=== PATIENT | male | born 1975 | race Caucasian/White ===

== ENCOUNTER 2023-04-01 08:23 | Outpatient (CLI) | payer MEDICARE, SELFPAY ==
--- NOTE | 2023-04-01 08:23 | CT_ITS ---
APPROVED REPORT Site Inspector: CLINICAL INDICATION Chest Pain TECHNIQUE Image Acquisition: A 128 slice MDCT scanner (Sisteera View) was used for data acquisition. A noncontrast coronary calcium scan was performed. A CT attenuation threshold of 130 Hounsfield units (HU) was used for the detection of calcium in contiguous voxels of 1 sq mm in area to be counted as individual lesions. Bolus tracking in the ascending aorta with a threshold of 180 HU was performed. Immediately afterwards, ECG synchronized cardiac CT was then performed from the cardiac base to apex using retrospective gating with ECG tube current modulation. A total of 85 mL of Isovue 370 mg/mL contrast medium was administered at 5 mL/sec followed by a saline flush using a biphasic injection protocol. A tube voltage of 120 KVp was used. The patient received the following medications prior to the cardiac CT. 25 mg of oral metoprolol 15 mg of oral ivabradine 0.8 mg of sublingual nitroglycerin The average heart rate at the time of acquisition was 55 bpm and regular. Image Reconstruction Transaxial images were reconstructed at 0.67 mm slide thickness. Data was reviewed interactively on an advanced workstation capable of 2 and 3-dimensional displays in all conventional reconstruction formats, including multiplanar reformations, maximum intensity projections, curved multiplanar reformations, and volume rendered reconstructions. When applicable, selected routine images describing the relevant coronary anatomy and pathology were saved and sent to PACS. Complications None Technical Quality Overall image quality was good. Coronary artery opacification was adequate. Total DLP (Dose-Length Product) is 1553.6 mGy-cm. The reported value represents the total of one or more individual components during the CT acquisition of this date and at this time, and as such, the same value may appear in more than one CT report depending on the interpreting/reporting physicians. COMPARISON None FINDINGS CT Coronary Calcium Scoring LMA (Left Main Artery) = 0 LAD (Left Anterior Descending) = 0 LCX (Left Coronary Circumflex) = 0 RCA (Right Coronary Artery) = 0 Total Calcium Score = 0 using the AJ-130 method. The interpretation of the calcium heart score is based on the following continuum*: 0 = no calcified plaque detected (risk of coronary artery disease is very low ??? less than 5%) 1-10 = calcium detected in extremely minimal levels (risk of coronary diseases is still low ??? less than 10%) 11-100 = mild levels of plaque detected with certainty (mild or minimal narrowing of heart arteries is likely) 101-400 = definite,at least moderate levels of plaque detected (relatively high risk of a heart attack within 3-5 years) >401-999 = extensive levels of plaque detected (high risk of heart attack, high levels of vascular disease are present, high likelihood of at least one significant coronary narrowing) *The calcium heart score quantifies the burden of coronary calcification/plaque in the coronary arteries. The calcium heart score is not able to evaluate the presence or burden of non-calcified (i.e. soft) plaque. There is no identifiable calcification in the aortic valve, mitral annulus or mitral valve, pericardium, or myocardium. Coronary CT Angiography The coronary arterial system is right dominant. Quantitative Stenosis Grading: Left Main (LM): The left main originates normally from the left sinus of Valsalva. The LM trifurcates into the left anterior descending artery and left circumflex artery. The LM is patent with no evidence of atherosclerosis. Left Anterior Descending (LAD) and Diagonal Branches: The LAD gives off 2 diagonal branches. The LAD and its branches are patent with no evidence of atherosclerosis. There is no evidence of LAD bridge. Ramus-intermedius (RI): The RI is patent. Left Circumflex (LCX) and Obtuse Marginals (OM): The LCX gives off 2 Obtuse Marginal (OM) branch(es). The LCX and its branches are patent with no evidence of atherosclerosis. Right Coronary Artery (RCA): The RCA originates normally from the right sinus of Valsalva. The RCA gives off a posterior descending artery (PDA) and posterolateral (PL) branches. The RCA and its branches are patent with no evidence of atherosclerosis. There is a small focal region of Non-Coronary Cardiac Findings: Analysis of the left ventricular (LV) structure and function was performed after 3-D reconstruction of the LV from axial images, with user-corrected automatic contouring for assessment of LV volumes and user-defined reconstruction from oblique planes for measurement of 3-D cardiac structure and function. LVEDV: 338 mL LVESV: 165 mL SV: 173 mL LVEF: 51.1% -There is low-normal left ventricular systolic function present. -Filling defect in the distal LA appendage. This possibly represents reduced contrast flow in the distal YARA, but cannot rule out YARA thrombus. Two right pulmonary veins and two left pulmonary veins drain normally into the left atrium. -No pericardial thickening or calcification. -Central and branch pulmonary arteries in the [id number] are unremarkable. -Thoracic aorta within the visualized thoracic aortic-branches in the [id number] is unremarkable. -A ventricular septal defect (VSD) patch/repair is noted in the mid-septum with mild calcification in the surrounding region. There is no extravasation of contrast from the LV into the RV, suggestive of absence of obvious residual defect. Extracardiac Structures No significant extra-cardiac findings. Note, however, that this study is focused on the cardiac findings. IMPRESSION -Absence of coronary calcification with an Agatston score = 0 using the AJ-130 method. -No evidence of significant flow-limiting atherosclerosis of the coronary arteries. -CAD-RADS 0. Management recommendations per ACC/AHA guidelines*, as clinically appropriate. -Incidentally, a ventricular septal defect (VSD) patch/repair is noted in the mid-septum. There is no extravasation of contrast from the LV into the RV, suggestive of absence of obvious residual defect. -Filling defect in the distal LA appendage. This possibly represents reduced contrast flow in the distal YARA, but cannot rule out YARA thrombus. *Recommendations: CAD RADS 0: Reassurance. Consider non-atherosclerotic causes of chest pain. CAD RADS 1: Consider non-atherosclerotic causes of chest pain. Consider preventive therapy and risk factor modification. CAD RADS 2: Consider non-atherosclerotic causes of chest pain. Consider preventive therapy and risk factor modification, particularly for patients with nonobstructive plaque in multiple segments. CAD RADS 3: Consider further functional testing. Consider symptom-guided anti-ischemic and preventive pharmacotherapy as well as risk factor modification per published guideline statements. CAD RADS 4A: Consider further functional testing or invasive coronary angiography with revascularization per published guideline statements. Consider symptom-guided anti-ischemic and preventive pharmacotherapy as well as risk factor modification per published guideline statements. CAD RADS 4B: Invasive coronary angiography recommended with revascularization per published guideline statements. Consider symptom-guided anti-ischemic and preventive pharmacotherapy as well as risk factor modification per published guideline statements. CAD RADS 5: Consider invasive angiography and/or viability assessment with revascularization per published guideline statements. Consider symptom-guided anti-ischemic and preventive pharmacotherapy as well as risk factor modification per published guideline statements. CRITICAL RESULT None COMMUNICATION Per this written report The coronary and cardiac findings of this CCTA were reviewed, reported, and signed by Nick Kaufman MD (Construction Safety Consultant) Conclusion Electronically signed by : Gena Kaufman MD 04/02/2023 16:39:24
[2023-04-01 08:36] VITALS: BMI 32.5
[2023-04-01] MEDS: METOPROLOL TARTRATE 25MG TABLET *IVABRADINE+METOPROLOL REGIMINE 25 MG PO (08:54)
[2023-04-01 09:03] LABS: Anion Gap 12.5 mEq/L (5-15); Blood Urea Nitrogen 10 mg/dl (9-20); Calcium 8.8 mg/dl (8.4-10.2); Carbon Dioxide 25 mmol/L (22.0-30.0); Chloride 107 mmol/L (98-107); Creatinine Clearance Estimated 222 mL/min (50-200); Estimated Glomerular Filt Rate 144 ml/min (>60); GFR (African American) 175 ML/MIN (>60); Glucose 111 mg/dl (74-100); Potassium 4.5 mmoL/L (3.5-5.1); Sodium 140 mmol/L (136-145)
[2023-04-01] MEDS: IVABRADINE HCL 7.5MG TABLET *IVABRADINE+METOPROLOL REGIMINE 15 MG PO (09:16)
[2023-04-01 09:55] VITALS: BP 155/104; PULSE 60; RESP 18; O2SAT 98
[2023-04-01] MEDS: NITROGLYCERIN 0.4MG SL TABLET 0.800000000000000044 MG SL (09:55)
[2023-04-01 10:00] VITALS: BP 156/95; PULSE 59; RESP 18; O2SAT 96
[2023-04-01 10:05] VITALS: BP 124/80; PULSE 57; RESP 18; O2SAT 98
[2023-04-01] MEDS: 0.9 % SODIUM CHLORIDE 50 ML VIAL IV (10:10)
[2023-04-01] MEDS: IOPAMIDOL-370 (76%);100ML BOTTLE 85 ML IV (10:11)
--- NOTE | 2023-04-01 10:15 | CA_ITS ---
APPROVED REPORT EXAM: Comprehensive 2D, Doppler, and color-flow Echocardiogram Showplace Manager: JUNG Marshall, RVS Ht: 5 ft 10 in Wt: 227lbs BSA: 2.20 BP: 128/76 mmHg Indications: Pre-op clearance,Smoker, Hx- VSD repaired in infancy, Abn EKG, Chronic pain-back injury 2D Dimensions Left Atrium 4.21 cm LA Volume 78.40 mL LA Volume Index [id number] mL/m2 (M/F) 16-34 M-Mode Dimensions RVDd 2.81 cm (0.9-2.6) LA Diam 4.92 cm (1.9-4.0) LVDd 5.80 cm (3.5-5.7) LVDs 3.79 cm (3.5-5.7) IVSd 1.21 cm (0.6-1.1) PWd 1.29 cm (0.6-1.1) EF (Teich) 63.00% EPSs 0.80 cm FS 34.70% EDV (Teich) 166.60 mL TAPSE 2.24 (<1.7) ESV (Teich) 61.60 mL LV Diastology E Decel Time 263 (160-240 msec) E/A Ratio 1.61 MED A' 7.60 cm/s LAT A' 7.50 cm/s Aortic Valve MOIZ Index 1.02 cm2/m2 AoV Peak Edwin. 140.0 (50-130 cm/s) AO Peak GR. 7.80 mmHg AO Mean GR. 3.90 (<5 mmHg) AO VTI 29.6 (18-25 cm) MOIZ (VTI) 2.31 (2.5-4.5 cm2) Mitral Valve MV A Velocity 48.0 (40-130 cm/s) E/A Ratio 1.61 Left Ventricle The left ventricle is normal size. The left ventricular systolic function is normal. The left ventricular ejection fraction is within the normal range. There is normal left ventricular wall thickness. The patient is s/p VSD repair. No evidence of residual shunt is present in the available views. There is normal LV segmental wall motion. The left ventricular diastolic function is normal. LVEF is 60%. Right Ventricle The right ventricle is normal size. The right ventricular systolic function is normal. Atria The left atrium size is normal. The right atrium size is normal. There is no Doppler evidence of interatrial shunt. Aortic Valve The aortic valve is normal in structure. There is no aortic valvular stenosis. No aortic regurgitation is present. Mitral Valve The mitral valve is normal in structure. No evidence of mitral valve stenosis. There is no mitral valve regurgitation noted. Tricuspid Valve The tricuspid valve leaflets are thin and pliable. Trace tricuspid regurgitation. There is insufficient TR jet to estimate RVSP. Pulmonic Valve The pulmonary valve is normal in structure. Trace pulmonic regurgitation. Great Vessels The aortic root is normal in size. The ascending aorta is normal in size. IVC is normal in size and collapses >50% with inspiration. Pericardium There is no pericardial effusion. Other Information Study Quality: Adequate Conclusion Normal biventricular systolic function. s/p VSD repair. No evidence of residual shunt in the available views. No significant valvular stenosis or regurgitation. Electronically signed by : Gena Kaufman MD 04/03/2023 19:33:34
== END 2023-04-01 23:59 | disposition home or self-care (01) ==
PROVIDERS: PCP Nurse Practitioner; Visit Provider Internal Medicine
DX: R94.31 Abnormal electrocardiogram [ECG] [EKG] (principal); Z01.810 Encounter for preprocedural cardiovascular examination; R07.9 Chest pain, unspecified; K40.90 Unilateral inguinal hernia, without obstruction or gangrene, not specified as recurrent; F17.200 Nicotine dependence, unspecified, uncomplicated
CPT/HCPCS: 75571; 75574; 80048; 93306; Q9967

== ENCOUNTER 2023-04-09 17:38 | Outpatient (CLI) | payer MEDICARE, SELFPAY ==
--- NOTE | 2023-04-09 17:42 | MR_ITS ---
FINAL REPORT TECHNIQUE: Multiplanar MR without contrast CLINICAL HISTORY: OSTEOPHYTE OF BONE bilateral leg pains x 14 years FINDINGS: Sagittal images show normal vertebral height. Alignment is normal. There are mild discogenic endplate signal changes at L4-5 and L5-S1. Marrow signal pattern is unremarkable. L1-2: Mild diffuse disc bulge. Mild central canal stenosis. L2-3: Postoperative changes from laminectomy. Mild neural foraminal narrowing. L3-4: Postoperative changes from laminectomy. Mild central canal stenosis and mild bilateral neural foraminal narrowing. L4-5: Moderate annular disc bulge and facet arthropathy. Moderate central canal stenosis and mild bilateral neural foraminal narrowing. L5-S1: Mild facet arthropathy. IMPRESSION: Moderate diffuse degenerative changes. Reviewed, Interpreted and Dictated by Brooklyn Davila MD Transcribed by Jennifer Jack Authenticated and [facility]
== END 2023-04-09 23:59 ==
LOC: RAD 17:39
PROVIDERS: PCP Nurse Practitioner; Visit Provider Nurse Practitioner
DX: M77.9 Enthesopathy, unspecified (principal)
CPT/HCPCS: 72148; 76376

== ENCOUNTER 2023-05-06 11:55 | Outpatient (CLI) | payer MEDICARE, SELFPAY ==
[2023-05-06 12:00] LABS: Microscopic, Urine URINE MICROSCOPIC (MICROSCOPIC)
[2023-05-06 12:17] LABS: Appearance,Urine CLEAR (Clear); Bilirubin,Urine Negative (Negative); Blood, Urine Negative (Negative); Color,Urine YELLOW (Yellow); Glucose,Urine (UA) Negative (Negative); Ketones,Urine Negative (Negative); Leukocyte Esterase,Urine Negative (Negative); Nitrate,Urine Negative (Negative); Protein,Urine TRACE (Negative); Specific Gravity, Urine 1.025 (1.005-1.030); Urobilinogen,Urine 0.2 EU/dl (0.2)
[2023-05-06 12:19] LABS: Basophils # 0.1 K/mm3 (0-0.2); Basophils % 0.7 % (0.1-2.0); Eosinophils # 0.2 K/mm3 (0.0-0.4); Hematocrit 49.3 % (42.0-52.0); Hemoglobin 16.8 g/dL (14.1-18.0); Lymphocytes # 3.8 K/mm3 (0.7-4.5); Lymphocytes % 37.9 % (10-50); Mean Corpuscular Hemoglobin 32.9 pg (27.0-31.2); Mean Corpuscular Volume 96.8 fl (80-94); Mean Platelet Volume 7.9 fl (7.4-10.4); Monocytes # 0.5 K/mm3 (0.1-1.0); Monocytes % 5.1 % (1.7-9.3); Neutrophils # 5.4 K/mm3 (1.8-7.8); Neutrophils % 54.4 % (37.0-80.0); Platelet Count 316 K/mm3 (142-424); Red Cell Distribution Width 13.7 % (11.5-17.5)
[2023-05-06 12:52] LABS: Anion Gap 9.4 mEq/L (5-15); Blood Urea Nitrogen 8 mg/dl (9-20); Calcium 9.6 mg/dl (8.4-10.2); Carbon Dioxide 30 mmol/L (22.0-30.0); Chloride 105 mmol/L (98-107); Estimated Glomerular Filt Rate 121 ml/min (>60); GFR (African American) 146 ML/MIN (>60); Glucose 112 mg/dl (74-100); Potassium 4.4 mmoL/L (3.5-5.1); Sodium 140 mmol/L (136-145)
[2023-05-06 13:38] LABS: Bacteria,Urine Trace /lpf; RBC,Urine Occasional #/hpf (0-3)
== END 2023-05-06 23:59 ==
LOC: LAB 11:56
PROVIDERS: PCP Nurse Practitioner; Visit Provider Surgery
DX: K40.90 Unilateral inguinal hernia, without obstruction or gangrene, not specified as recurrent (principal)
CPT/HCPCS: 36415; 80048; 81001; 85025

== ENCOUNTER 2023-05-11 07:46 | Day surgery (SDC) | payer MEDICARE, SELFPAY ==
[2023-05-08 12:34] VITALS: BMI 32.5
[2023-05-11] VITALS (13 sets, daily range): BP systolic 128–147; BP diastolic 64–96; PULSE 64–88; RESP 12–22; TEMP 36.1–36.6; O2SAT 94–100
[2023-05-11] MEDS: LACTATED RINGERS 1000ML 1,000 ML 25 ML IV (08:13)
[2023-05-11] MEDS: CEFAZOLIN SODIUM 2 GM in 0.9 % SODIUM CHLORIDE 100 ML IV (08:45)
[2023-05-11] MEDS: LIDOCAINE 1% 20ML MDV 20 ML (08:52)
[2023-05-11] MEDS: ROPIVACAINE 0.5% 30ML VIAL 150 MG (08:52)
--- NOTE | 2023-05-11 09:18 | EXP.ANES.CKL ---
[facility] Disclaimer: The information contained in this section may have been updated after the patient was seen, as this information can be updated by other users. Medical History Abnormal electrocardiogram [ECG] [EKG] Pre-operative cardiovascular examination Smoker Surgical History History of back surgery History of open heart surgery Family History Other Family history of cancer History of atrial fibrillation without current medication Social History (Updated 05/11/23 @ 08:09 by Sakina Bazan RN) Smoking Status: Current every day smoker alcohol intake: former substance use type: marijuana current occupational status: disabled Travel in the last 8 weeks: None [facility] Anesthesia Checklist Patient Identification Patient Identification: Verbal (Name & ) Structural Data Admitted From: Home Planned Operative Procedure/s: l inguinal hernia repair Consent for Planned Operative Procedure(s) Verified: Yes NPO Status Verified Time NPO: 00:00 Additional verifications Anesthesia Reactions: No Hx Blood Transfusions: Yes Blood Transfusion Reaction: No Airway Assessment Mallampati Score:: Class II C-Spine Mobility Assessed: Yes TMJ Mobility Assessed: Yes Dentition: Good Dentition Neurological Assessment Level of Consciousness: Awake, Alert and Appropriate Anesthesia Plan Anesthesia Risk discussed: Yes Anesthesia Plan: Verified ASA Class: II Anesthesia Type: Spinal
--- NOTE | 2023-05-11 11:01 | P.OP_ITS ---
Date of procedure: 05/11/23 Pre-op Diagnosis:: Left inguinal hernia Post-op Diagnosis:: Same Procedure performed:: Open repair of sliding left inguinal hernia with placement of large size Bard prefix mesh with plug Surgeon:: Mitchel Gale MD RN CLINICAL APPEALS:: Jose Landry Anesthesia: GETA Estimated blood loss (mL): 20 Operative findings:: He had a rather large indirect sliding hernia with sigmoid colon Operative note:: Patient was taken the operating room. He was given preoperative intravenous antibiotics. In the operating room he was placed in a supine position. General anesthesia was induced. Carmona catheter was placed. Lower abdomen and perineal area were prepped and draped in the standard surgical fashion. Landmarks were identified. Oblique incision was made in the left inguinal area slightly above landmarks identifying the inguinal ligament. Dissection was carried down through subcutaneous tissues and Ed's fascia using electrocautery. External oblique muscle was cleaned free. External oblique muscle was opened along the length of its fibers to the external ring. The ilioinguinal nerve was identified and preserved. Cord structures were dissected free from the floor. He had a rather thickened cord consistent with indirect hernia. Very prolonged dissection was carried out dissecting free the hernia sac from the cord structures carefully. Ultimately the hernia sac was carefully opened. Contents were identified. There was herniated sigmoid colon which actually made up the wall of the hernia sac deep and proximal consistent with sliding inguinal hernia. The extraneous peritoneum of the hernia sac was dissected free down to the sigmoid colon. It was carefully closed over the sigmoid colon using a locking running 2-0 Vicryl. Hernia contents were then reduced. Large sized Bard prefix mesh plug was brought onto the field. It was secured into the region of the internal ring using 2-0 PDS securing it to the shelving edge of the inguinal ligament and to transversalis fascia with several interrupted 2-0 PDS sutures. Onlay mesh was then placed suturing this to Juan Antonio's ligament and along the shelving edge of the inguinal ligament using a running 2-0 PDS suture. It was secured superior medially to transversalis using interrupted 2-0 PDS horizontal mattress sutures. The 2 leaves of the mesh were used to encircle the cord structures and nerve and sutured to 1 another with several interrupted 2-0 PDS to reconstruct the internal ring. Sutures were placed laterally as well. Cord structures and inguinal nerve returned to normal anatomic position. Wound was thoroughly irrigated. There was good hemostasis. Local anesthetic was infiltrated into the deep tissues as well as for an inguinal nerve block. External oblique muscle was closed over the cord structures with a running 2-0 Vicryl. Ed's fascia was closed with running 2-0 Vicryl. Skin was closed with subcuticular Monocryl. Clean dry sterile dressings were applied. Condition: stable Disposition: PACU Complications:: None immediately apparent
--- NOTE | 2023-05-11 11:02 | EXP.ANES.I ---
[facility] Anesthesia Record Part I Anesthesia Record I Intake, IV Amount: 1,600 Hydration: Adequate Estimated blood loss (mL): 0 Urine output (mL): 100 Blood Pressure: 133/64 SaO2: 98 Pulse Rate: 78 Airway Patency: Patent Respiratory Rate: 12 Temperature: 97.8 F Patient is:: Awake and Stable Stable to PACU at:: 11:00
--- NOTE | 2023-05-11 11:24 | SUR.OPER ---
Some difficulty was noted when placing the catheter. Dr gale was notified. Ua was collected and the lepe bag had about 150ml of urine when procedure was ended. The catheter was pulled with no difficulty and no blood noted in the bag or after removing the coude. In pacu patient asked for a urinal to go to the restroom and blood clots were noted in the urinal. PT complained of no pain and Dr. Gale was notified.
[2023-05-11] MEDS: HYDROMORPHONE 2MG/ML SYRINGE 0.5 MG IV ×4 (11:37→11:57)
--- NOTE | 2023-05-11 12:23 | PC.NURSE ---
1120-pt using urinal at bedside at this time. small clots and bloody urine noted in urinal. dr. carey made aware. no new orders at this time
[2023-05-11] MEDS: ONDANSETRON 4MG/2ML VIAL 4 MG IV (12:35)
--- NOTE | 2023-05-11 12:36 | SUR.PHASEI ---
1125- Dr Gale in to evaluate pt. States that pt may need to have lepe catheter placed. Request we speak with Urologist to determine appropriate POC. 1130- Spoke with Dr Garcia. Recommend insertion of lepe catheter, for pt to go home with catheter and be seen in office next week for evaluation and discontinuation of catheter. Pt also to follow up sooner if catheter output ceases or increased blood noted. 18 fr lepe catheter inserted with blood tinged urine returned.
--- NOTE | 2023-05-11 12:38 | SUR.PHASEII ---
per [facility]J. Dr. Garcia said to leave catheter in until thursday, will educate pt on catheter care.
[2023-05-11 13:09] LABS: Microscopic,Cath URINE MICROSCOPIC (MICROSCOPIC)
[2023-05-11 13:13] LABS: Appearance,Urine/Cath TURBID (Clear); Blood, Urine/Cath 3+ (Negative); Glucose,Urine/Cath (UA) Negative (Negative); Ketones,Urine/Cath 1+ (Negative); Leukocyte Esterase,Cath 2+ (Negative); Nitrate,Cath POSITIVE (Negative); PH,Urine/Cath 6.5 (5.0-8.5); Protein,Urine/Cath 3+ (Negative)
[2023-05-11 13:20] LABS: Bilirubin,Cath 1+ (Negative); Color,Urine/Cath RED (Yellow)
[2023-05-11 13:25] LABS: Bacteria,Urine/Cath TRACE /lpf; RBC,Urine/Cath TNTC # /hpf (0-3); WBC,Urine/Cath Occasional #/hpf (0-3)
--- NOTE | 2023-05-18 16:59 | EXP.ANES.II ---
[facility] Anesthesia Record Part II Anesthesia Record Part II Discharge Time: 12:14 Destination: Surgical Day Care (OP Surgery) PACU nurse assessment reviewed?: Yes Patient Condition:: Good Anesthesia Complications:: None Swallowing reflex intact?: Yes Airway Patency: Patent Cyanosis?: No Blood Pressure: 134/70 SaO2: 100 Respiratory Rate: 18 Pulse Rate: 74 Temperature: 97.8 F Mental Status: Alert & Oriented Pain level:: 2 Nausea and/or vomitting:: None Intake, IV Amount: 0 Hydration: Adequate
[2023-05-18 17:00] VITALS: BP 134/70; PULSE 74; RESP 18; TEMP 36.6; O2SAT 100
== END 2023-05-11 12:58 | disposition home or self-care (01) ==
PROVIDERS: PCP Physician Assistant; Visit Provider Surgery
PROC: (CPT 49507; principal; 2023-05-11 09:15)
DX: K40.90 Unilateral inguinal hernia, without obstruction or gangrene, not specified as recurrent (principal)
CPT/HCPCS: 49507; 81001; 87086; 88302; 96374; J2405

== ENCOUNTER 2023-05-18 13:40 | Outpatient (CLI) | payer MEDICARE, SELFPAY ==
[2023-05-18 13:57] LABS: Microscopic, Urine URINE MICROSCOPIC (MICROSCOPIC)
[2023-05-18 14:49] LABS: Appearance,Urine CLEAR (Clear); Bilirubin,Urine Negative (Negative); Blood, Urine Negative (Negative); Color,Urine YELLOW (Yellow); Glucose,Urine (UA) Negative (Negative); Ketones,Urine Negative (Negative); Leukocyte Esterase,Urine Negative (Negative); Nitrate,Urine Negative (Negative); PH,Urine 7.5 (5.0-8.5); Protein,Urine TRACE (Negative); Specific Gravity, Urine 1.025 (1.005-1.030)
== END 2023-05-18 23:59 ==
LOC: LAB 13:41
PROVIDERS: PCP Nurse Practitioner; Visit Provider Urology
DX: R33.9 Retention of urine, unspecified (principal); R39.15 Urgency of urination; N40.0 Benign prostatic hyperplasia without lower urinary tract symptoms
CPT/HCPCS: 81001; 87086